=== PATIENT | male | born 1995 | race Caucasian/White ===

== ENCOUNTER 2021-04-22 13:39 | Emergency (ER) | payer OTHER ==
[~2021-04-22] VITALS: Ht 175.3 cm; Wt 104.3 kg
[~2021-04-22 13:39] MED LIST: HYDROCODONE-AP1 EAC6 PO; ZOFRAN ODT4 MG PO
[2021-04-22] MEDS ORDERED: DEXAMETHASONE 44 M1 PO (15:16)
[2021-04-22] MEDS ORDERED: ZPAK PO (15:16)
--- NOTE | 2021-04-22 15:16 | EKG ---
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 04/22/21 1516 1406 [id number] Terrance Galdamez MD, FACC /EPI
[2021-04-22 16:05] VITALS: BP 127/84
== END 2021-04-22 16:07 | disposition home or self-care (01) ==
LOC: M.ERS 13:39
DX: J20.9 Acute bronchitis, unspecified (principal); Z20.822 Contact with and (suspected) exposure to COVID-19; Z88.5 Allergy status to narcotic agent

== ENCOUNTER 2021-05-01 12:20 | Emergency (ER) | payer OTHER ==
[~2021-05-01] VITALS: Ht 175.3 cm; Wt 104.3 kg
[~2021-05-01 12:20] MED LIST changes: +DEXAMETHASONE 44 M1 PO; +ZPAK PO
[2021-05-01 12:49] VITALS: BP 137/95
== END 2021-05-01 14:35 | disposition left against medical advice (07) ==
LOC: M.ERS 12:20
DX: Z53.21 Procedure and treatment not carried out due to patient leaving prior to being seen by health care provider (principal)

== ENCOUNTER 2021-07-15 00:39 | Emergency (ER) | payer OTHER ==
[~2021-07-15] VITALS: Ht 175.3 cm; Wt 113.4 kg
[2021-07-15 00:46] VITALS: BP 143/93
[2021-07-15] MEDS ORDERED: CIPROFLOXIN HC2.5 M1 OPHTHALMIC (01:18)
== END 2021-07-15 01:27 | disposition home or self-care (01) ==
LOC: M.ERS 00:39
DX: S05.8X2A Other injuries of left eye and orbit, initial encounter (principal); Z88.5 Allergy status to narcotic agent; X58.XXXA Exposure to other specified factors, initial encounter; Y93.89 Activity, other specified; Y92.89 Other specified places as the place of occurrence of the external cause; Y99.8 Other external cause status